=== PATIENT | male | born 1980 | race Caucasian/White ===

== ENCOUNTER 2019-02-26 13:56 | Emergency (ER) | payer OTHER ==
[~2019-02-26] VITALS: Ht 170.2 cm; Wt 93.8 kg
[2019-02-26] MEDS ORDERED: ASPIRIN 81 MG TABLET CHEW PO ONE (14:30)
--- NOTE | 2019-02-26 14:31 | NUR ---
PT TO ROOM FROM LOBBY
[2019-02-26] MEDS ORDERED: ASPIRIN 81 MG TABLET CHEW ONE (14:40)
[2019-02-26] MEDS ORDERED: DIAZEPAM 5 MG TABLET PO ONE (15:00)
[2019-02-26] MEDS ORDERED: KETOROLAC 30 MG/1 ML IM ONE (15:00)
--- NOTE | 2019-02-26 15:00 | NUR ---
[facility] RPT REC'D FROM [facility]. ASSUMED PT CARE.
[2019-02-26] MEDS ORDERED: KETOROLAC 30 MG/1 ML ONE (15:15)
[2019-02-26] MEDS ORDERED: DIAZEPAM 5 MG TABLET ONE (15:16)
[2019-02-26 15:22] LABS: BASOPHILS # (AUTO) 0.04 x10^3/uL (0-0.1); BASOPHILS % (AUTO) 1 % (0-1); EOSINOPHILS # (AUTO) 0.33 x10^3/uL (0-0.4); EOSINOPHILS % (AUTO) 3 % (1-7); LYMPHOCYTES % (AUTO) 26 % (22-44); MD NO; MEAN CORPUSCULAR HEMOGLOBIN 30.1 pg (27.5-34.5); MEAN CORPUSCULAR HGB CONC 33.5 g/dL (33.2-36.2); MEAN CORPUSCULAR VOLUME 89.9 fL (81-97); MEAN PLATELET VOLUME 10.1 fL (7.4-10.4); MONOCYTES # (AUTO) 0.74 x10^3/uL (0.2-0.8); MONOCYTES % (AUTO) 8 % (2-9); NEUTROPHILS # (AUTO) 5.99 x10^3/uL (1.8-6.8); NEUTROPHILS % (AUTO) 62 % (42-75); PLATELET COUNT 251 x10^3/uL (130-400); RED BLOOD COUNT 5.18 x10^6/uL (4.38-5.82); RED CELL DISTRIBUTION WIDTH 12.5 % (9.4-14.8)
--- NOTE | 2019-02-26 15:22 | NUR ---
PT MED NOTED FOR LEFT UPPER BACK PAIN.
[2019-02-26 15:27] LABS: ALBUMIN 3.9 g/dL (3.4-5.0); ANION GAP 9 mmol/L (5-15); CALCIUM 8.8 mg/dL (8.5-10.1); CHLORIDE 110 mmol/L (98-107); CREATININE 1.04 mg/dL (0.7-1.3)
[2019-02-26 15:32] LABS: TROPONIN I < 0.015 ng/mL (0.000-0.045)
[2019-02-26] MEDS ORDERED: HYDROcodone/APAP 5/325 TABLET ONE (15:58)
[2019-02-26] MEDS ORDERED: HYDROcodone/APAP 5/325 TABLET PO STA (15:58)
[2019-02-26 16:02] VITALS: BP 157/94
--- NOTE | 2019-02-26 16:20 | NUR ---
Patient/Caregiver given discharge instructions and they have confirmed that they understand the instructions. Patient ambulatory with steady gait. PT VERBALIZES THAT HIS W/B PICKING HIM UP.
== END 2019-02-26 16:23 | disposition home or self-care (01) ==
LOC: ED 16:17
DX: R07.89 Other chest pain (principal); M62.830 Muscle spasm of back; F17.210 Nicotine dependence, cigarettes, uncomplicated
CPT/HCPCS: 36415; 71046; 80048; 82040; 84484; 85025; 93005; 96372; 99284; J1885